=== PATIENT | female | born 1940 | race Caucasian/White ===

== ENCOUNTER 2017-02-13 05:37 | Inpatient (IN) | payer OTHER ==
[2017-02-08 13:06] LABS: BILIRUBIN,URINE NEGATIVE (NEGATIVE); CLARITY/URINE CLEAR (CLEAR); COLOR,URINE YELLOW (YELLOW); GLUCOSE,URINE NEGATIVE (NEGATIVE); KETONES,URINE NEGATIVE (NEGATIVE); LEUKOCYTE ESTERASE ,URINE 1+ (NEGATIVE); NITRITE, URINE NEGATIVE (NEGATIVE); PH,URINE 7.5 (5.0-8.0); PROTEIN URINE NEGATIVE (NEGATIVE); UROBILINOGEN,URINE 0.2 (0.2-1.0)
[2017-02-08 13:08] LABS: BLOOD, URINE TRACE (NEGATIVE)
[2017-02-08 13:10] LABS: BASOPHILS # (AUTO) 0.1 K/uL (0.0-0.2); BASOPHILS % (AUTO) 0.5 % (0.0-2.0); EOSINOPHILS # (AUTO) 0.2 K/uL (0.0-0.4); HEMATOCRIT 41.1 % (36-48); HEMOGLOBIN 13.2 g/dL (12.0-16.0); LYMPHOCYTES # (AUTO) 2.3 K/uL (1.0-5.5); LYMPHOCYTES % (AUTO) 22.1 % (20.5-51.5); MEAN CORPUSCULAR HEMOGLOBIN 29 pg (27-31); MEAN CORPUSCULAR HGB CONC 32 % (32-36); MEAN CORPUSCULAR VOLUME 91 fL (79.0-98.0); MONOCYTES % (AUTO) 9.5 % (1.7-9.3); NEUTROPHILS % (AUTO) 65.9 % (40.0-70.0); PLATELET COUNT (AUTO) 346 K/uL (130-430); RED BLOOD CELL COUNT(AUTO) 4.53 MIL/uL (4.2-6.2); RED CELL DISTRIBUTION WIDTH 12.4 % (9.0-15.0); WHITE BLOOD COUNT (AUTO) 10.6 K/uL (4.8-10.8)
[2017-02-08 13:19] LABS: BACTERIA,URINE FEW /HPF (None Seen)
[2017-02-08 13:20] LABS: MUCUS,URINE 1+ /LPF (None Seen)
[2017-02-08 13:28] LABS: ANION GAP 8 (5-15); CALCIUM 10.1 mg/dL (8.4-11.0); CHLORIDE 101 mmol/L (98-107); CREATININE 0.72 mg/dL (0.55-1.30); GLUCOSE 107 mg/dL (70-99); POTASSIUM 3.7 mmol/L (3.5-5.1); SODIUM SERUM 138 mmol/L (136-145); UREA NITROGEN, BLOOD 14 mg/dL (8-21)
[2017-02-08 13:40] LABS: PROTHROMBIN TIME 10.2 SECS (9.5-12.5)
[~2017-02-13] VITALS: Ht 157.5 cm; Wt 88.9 kg
[~2017-02-13 05:37] MED LIST: ALIS300T PO; AMLO5TAB4 PO; HYDR25TA4 PO; LIP40 PO; OXYC-130 PO; PRAM0.253 PO
[2017-02-13] MEDS ORDERED: ACETAMINOPHEN 500 MG TABLET ONE (06:02)
[2017-02-13] MEDS ORDERED: CEFAZOLIN 2 GM IVPB PREMIX 50 ML IV ONE ×2 (06:02→07:15)
[2017-02-13] MEDS ORDERED: oxyCODONE HCL 10 MG TAB.ER.12H PO ONE ×2 (06:03→07:15)
[2017-02-13] MEDS ORDERED: GABAPENTIN 300 MG CAPSULE ONE (06:03)
[2017-02-13] MEDS ORDERED: CELECOXIB 200 MG CAPSULE ONE (06:03)
[2017-02-13] MEDS ORDERED: TRANEXAMIC ACID 650 MG TABLET ONE (06:04)
[2017-02-13] MEDS ORDERED: LevALBUTEROL HCL 1.25 MG/0.5 ML *CONC.* VIAL.NEB (XOPENEX CONC.) INH ONE ×2 (06:29→06:30)
[2017-02-13] MEDS ORDERED: KETOROLAC TROMETHAMINE 15 MG VIAL IVP ONE (07:00)
[2017-02-13] MEDS ORDERED: fentaNYL CITRATE 250 MCG/5 ML AMP IV ONE (07:00)
[2017-02-13] MEDS ORDERED: ONDANSETRON HCL 4 MG/2 ML VIAL IVP ONE (07:00)
[2017-02-13] MEDS ORDERED: NEOSTIGMINE METHYLSULFATE 1 MG/ML, 10 ML VIAL IVP ONE (07:00)
[2017-02-13] MEDS ORDERED: ALFENTANIL HCL 1000 MCG/2 ML AMP IVP ONE (07:00)
[2017-02-13] MEDS ORDERED: SEVOFLURANE 15 MIN GAS INH ONE (07:00)
[2017-02-13] MEDS ORDERED: MIDAZOLAM HCL 5 MG/ML VIAL (VERSED) IV ONE (07:00)
[2017-02-13] MEDS ORDERED: GLYCOPYRROLATE 0.2 MG/ML VIAL IJ ONE (07:00)
[2017-02-13] MEDS ORDERED: LR 1,000 ML IV.SOLN IV ONE (07:00)
[2017-02-13] MEDS ORDERED: DEXAMETHASONE SOD PHOSPHATE 4 MG/ML VIAL IVP ONE (07:00)
[2017-02-13] MEDS ORDERED: PROPOFOL 200MG/ 20ML VIAL (DIPRIVAN) IV ONE (07:00)
[2017-02-13] MEDS ORDERED: DILTIAZEM HCL 25 MG/5 ML VIAL IV ONE (07:00)
[2017-02-13] MEDS ORDERED: ROCURONIUM BROMIDE 10 MG/ML (ZEMURON) IV ONE (07:00)
[2017-02-13] MEDS ORDERED: fentaNYL CITRATE/PF 100 MCG/2 ML AMP IVP ONE (07:00)
[2017-02-13] MEDS ORDERED: POLYMYXIN 500,000/BACIT.10,000 UNITS in NS IRR 1 L IR ONE (07:09)
[2017-02-13] MEDS ORDERED: ACETAMINOPHEN 500 MG TABLET PO ONE (07:15)
[2017-02-13] MEDS ORDERED: TRANEXAMIC ACID 650 MG TABLET PO ONE (07:15)
[2017-02-13] MEDS ORDERED: CELECOXIB 200 MG CAPSULE PO ONE (07:15)
[2017-02-13] MEDS ORDERED: NACL 0.9% 1,000 ML IV ONE (07:15)
[2017-02-13] MEDS ORDERED: GABAPENTIN 300 MG CAPSULE PO ONE (07:15)
[2017-02-13] MEDS ORDERED: LR 1,000 ML IV SCH (07:54)
[2017-02-13] MEDS ORDERED: ROPIVACAINE 0.2% 100 ML INJ SCH (07:54)
[2017-02-13] MEDS ORDERED: HYDROmorphone 2 MG/ML VIAL IVP PRN ×2 (08:00)
[2017-02-13] MEDS ORDERED: HYDROmorphone 1 MG INJ. 1 MG/ML AMPUL IVP PRN (08:00)
[2017-02-13] MEDS ORDERED: MEPERIDINE HCL/PF 25 MG/ML DISP.SYRIN IVP PRN (08:00)
[2017-02-13] MEDS ORDERED: HYDROcodone/ACETAMIN 10-325 MG TAB PO PRN ×2 (08:00)
[2017-02-13] MEDS ORDERED: ACETAMINOPHEN I.V. 1000 MG 100 ML IV PRN (08:00)
[2017-02-13] MEDS ORDERED: PROMETHAZINE HCL 25 MG/ML AMP IVP PRN (09:15)
[2017-02-13] MEDS ORDERED: DIPHENHYDRAMINE HCL 25 MG CAPSULE PO PRN (09:15)
[2017-02-13] MEDS ORDERED: oxyCODONE HCL 5 MG TABLET PO PRN (09:15)
[2017-02-13] MEDS ORDERED: ONDANSETRON HCL 4 MG/2 ML VIAL IVP PRN (09:15)
[2017-02-13] MEDS ORDERED: SENNOSIDES 8.6 MG TABLET PO PRN (09:15)
[2017-02-13] MEDS ORDERED: ROPIVACAINE 0.2% 550 ML INJ SCH (09:15)
[2017-02-13] MEDS ORDERED: HYDROmorphone 1 MG INJ. 1 MG/ML AMPUL ONE (10:19)
[2017-02-13 11:14] VITALS: BP_SYST 148
[2017-02-13] MEDS: CEFAZOLIN 1 GM IVPB PREMIX 50 ML IV SCH ×2 (15:28→22:49)
[2017-02-13] MEDS: D5LR 1,000 ML IV SCH ×2 (15:29→19:15)
[2017-02-13] MEDS: ACETAMINOPHEN 500 MG TABLET PO SCH ×2 (15:31→21:07)
[2017-02-13 16:39] VITALS: BP_SYST 126
[2017-02-13 17:21] VITALS: BP_SYST 126
[2017-02-13 20:00] VITALS: BP_SYST 142
[2017-02-13] MEDS: GABAPENTIN 300 MG CAPSULE PO SCH (21:08)
[2017-02-13] MEDS: PRAMIPEXOLE DI-HCL 0.25 MG TABLET PO SCH (21:08)
[2017-02-13] MEDS: CELECOXIB 200 MG CAPSULE PO SCH (21:08)
[2017-02-13 23:09] VITALS: BP_SYST 125
[2017-02-13 23:11] VITALS: BP_SYST 125
[2017-02-14 04:02] VITALS: BP_SYST 131
[2017-02-14] MEDS: CEFAZOLIN 1 GM IVPB PREMIX 50 ML IV SCH (05:58)
[2017-02-14] MEDS: D5LR 1,000 ML IV SCH (05:59)
[2017-02-14 06:19] LABS: BASOPHILS % (AUTO) 0.1 % (0.0-2.0); HEMATOCRIT 31.8 % (36-48); HEMOGLOBIN 10.7 g/dL (12.0-16.0); LYMPHOCYTES # (AUTO) 1.2 K/uL (1.0-5.5); LYMPHOCYTES % (AUTO) 8.7 % (20.5-51.5); MEAN CORPUSCULAR HEMOGLOBIN 30 pg (27-31); MEAN CORPUSCULAR HGB CONC 34 % (32-36); MEAN CORPUSCULAR VOLUME 91 fL (79.0-98.0); MONOCYTES # (AUTO) 1.2 K/uL (0.0-1.0); MONOCYTES % (AUTO) 8.7 % (1.7-9.3); NEUTROPHILS % (AUTO) 82.5 % (40.0-70.0); PLATELET COUNT (AUTO) 256 K/uL (130-430); RED BLOOD CELL COUNT(AUTO) 3.51 MIL/uL (4.2-6.2); RED CELL DISTRIBUTION WIDTH 12.4 % (9.0-15.0); WHITE BLOOD COUNT (AUTO) 13.4 K/uL (4.8-10.8)
[2017-02-14 06:25] LABS: ANION GAP 8 (5-15); CALCIUM 9.2 mg/dL (8.4-11.0); CHLORIDE 103 mmol/L (98-107); CREATININE 0.79 mg/dL (0.55-1.30); GLUCOSE 160 mg/dL (70-99); POTASSIUM 3.7 mmol/L (3.5-5.1); SODIUM SERUM 138 mmol/L (136-145); UREA NITROGEN, BLOOD 13 mg/dL (8-21)
[2017-02-14 08:00] VITALS: BP_SYST 123
[2017-02-14] MEDS: CELECOXIB 200 MG CAPSULE PO SCH ×2 (08:55→20:07)
[2017-02-14] MEDS: ATORVASTATIN 20 MG TABLET PO SCH (08:55)
[2017-02-14] MEDS: HYDROCHLOROTHIAZIDE 25 MG TABLET (HCTZ) PO SCH (08:56)
[2017-02-14] MEDS: oxyCODONE HCL 5 MG TABLET PO PRN ×2 (08:57→21:52)
[2017-02-14] MEDS: amLODIPine BESYLATE 5 MG TABLET PO SCH (08:58)
[2017-02-14] MEDS: ALISKIREN HEMIFUMARATE 150 MG TABLET PO SCH (09:00)
[2017-02-14] MEDS: ACETAMINOPHEN 500 MG TABLET PO SCH ×3 (09:01→20:07)
[2017-02-14] MEDS: RIVAROXABAN 10 MG TABLET PO SCH (10:27)
[2017-02-14] MEDS: KETOROLAC TROMETHAMINE 15 MG VIAL IVP PRN (10:28)
[2017-02-14 12:10] VITALS: BP_SYST 134
[2017-02-14 16:00] VITALS: BP_SYST 128
[2017-02-14 20:07] VITALS: BP_SYST 131
[2017-02-14] MEDS: GABAPENTIN 300 MG CAPSULE PO SCH (20:07)
[2017-02-14] MEDS: PRAMIPEXOLE DI-HCL 0.25 MG TABLET PO SCH (20:07)
[2017-02-14] MEDS: MORPHINE 4 MG/ML INJ. SYRINGE IVP PRN (22:32)
[2017-02-14 23:50] VITALS: BP_SYST 124
[2017-02-15] MEDS: MORPHINE 4 MG/ML INJ. SYRINGE IVP PRN ×3 (01:32→13:54)
[2017-02-15 03:31] VITALS: BP_SYST 115
[2017-02-15 06:39] LABS: ANION GAP 4 (5-15); CHLORIDE 103 mmol/L (98-107); CREATININE 0.64 mg/dL (0.55-1.30); GLUCOSE 105 mg/dL (70-99); POTASSIUM 3.5 mmol/L (3.5-5.1); SODIUM SERUM 137 mmol/L (136-145); UREA NITROGEN, BLOOD 15 mg/dL (8-21)
[2017-02-15 06:40] LABS: BASOPHILS % (AUTO) 0.5 % (0.0-2.0); EOSINOPHILS # (AUTO) 0.1 K/uL (0.0-0.4); EOSINOPHILS % (AUTO) 1.4 % (0.0-4.0); HEMATOCRIT 32.6 % (36-48); HEMOGLOBIN 10.8 g/dL (12.0-16.0); LYMPHOCYTES % (AUTO) 21.7 % (20.5-51.5); MEAN CORPUSCULAR HEMOGLOBIN 30 pg (27-31); MEAN CORPUSCULAR HGB CONC 33 % (32-36); MEAN CORPUSCULAR VOLUME 90 fL (79.0-98.0); MONOCYTES # (AUTO) 1.3 K/uL (0.0-1.0); MONOCYTES % (AUTO) 13.6 % (1.7-9.3); NEUTROPHILS % (AUTO) 62.8 % (40.0-70.0); PLATELET COUNT (AUTO) 235 K/uL (130-430); RED BLOOD CELL COUNT(AUTO) 3.61 MIL/uL (4.2-6.2); RED CELL DISTRIBUTION WIDTH 12.5 % (9.0-15.0); WHITE BLOOD COUNT (AUTO) 9.4 K/uL (4.8-10.8)
[2017-02-15] MEDS: KETOROLAC TROMETHAMINE 15 MG VIAL IVP PRN (07:48)
[2017-02-15 08:00] VITALS: BP_SYST 129
[2017-02-15 08:11] VITALS: BP_SYST 129
[2017-02-15] MEDS: D5LR 1,000 ML IV SCH ×3 (08:25→11:15)
[2017-02-15] MEDS: CELECOXIB 200 MG CAPSULE PO SCH (08:28)
[2017-02-15] MEDS: ACETAMINOPHEN 500 MG TABLET PO SCH (08:29)
[2017-02-15] MEDS: ATORVASTATIN 20 MG TABLET PO SCH (08:29)
[2017-02-15] MEDS: HYDROCHLOROTHIAZIDE 25 MG TABLET (HCTZ) PO SCH (08:30)
[2017-02-15] MEDS: amLODIPine BESYLATE 5 MG TABLET PO SCH (08:31)
[2017-02-15] MEDS: ALISKIREN HEMIFUMARATE 150 MG TABLET PO SCH (08:31)
[2017-02-15] MEDS: RIVAROXABAN 10 MG TABLET PO SCH (10:25)
[2017-02-15] MEDS: oxyCODONE HCL 5 MG TABLET PO PRN (10:26)
[2017-02-15 12:04] VITALS: BP_SYST 135
[2017-02-15 12:17] VITALS: BP_SYST 125
[2017-02-15 16:00] VITALS: BP_SYST 130
== END 2017-02-15 15:05 | disposition home health service (06) | DRG 470 ==
LOC: SMU 05:37 → STU 10:43
PROVIDERS: ADMIT Orthopaedic Surgery; ATTEND Orthopaedic Surgery
PROC: 3E0T3BZ Introduction of Anesthetic Agent into Peripheral Nerves and Plexi, Percutaneous Approach (ICD-10-PCS; 2017-02-13)
PROC: 0SRC0J9 Replacement of Right Knee Joint with Synthetic Substitute, Cemented, Open Approach (ICD-10-PCS; principal; 2017-02-13 07:30)
DX: M17.11 Unilateral primary osteoarthritis, right knee (principal); E11.9 Type 2 diabetes mellitus without complications; G25.81 Restless legs syndrome; I10 Essential (primary) hypertension; Z96.652 Presence of left artificial knee joint; E78.5 Hyperlipidemia, unspecified; J45.909 Unspecified asthma, uncomplicated; E66.9 Obesity, unspecified; Z68.35 Body mass index [BMI] 35.0-35.9, adult
CPT/HCPCS: 36415; 71020-TC; 80048; 81000-TC; 85025; 85610-TC; 85730-TC; 87081; 88305; 88311; 94010; 94640; 94760; 97039; 97110-GP; 97116-GP; 97530-GP; C1713; C1776; J0690; J1100; J1170; J1885; J2250; J2270; J2405; J2704; J2710; J2795; J3010; J3490; J7120

== ENCOUNTER 2017-02-17 15:40 | Emergency (ER) | payer OTHER ==
[~2017-02-17] VITALS: Ht 157.5 cm; Wt 88.9 kg
[2017-02-17] MEDS ORDERED: NACL 0.9% 1,000 ML IV ONE (15:53)
[2017-02-17] MEDS ORDERED: ASPIRIN 81 MG TAB.CHEW PO ONE (16:00)
[2017-02-17 16:31] VITALS: BP_SYST 153
--- NOTE | 2017-02-17 16:38 | NUR ---
Pt placed to ER waiting room in w/c, stable condition.
--- NOTE | 2017-02-17 16:39 | NUR ---
Pt placed to ER bed 05, to gown, report given to MYA Russell.
--- NOTE | 2017-02-17 16:40 | NUR ---
received Pt awake, alert, orientated x4. Pt breathing even and unlabored. Pt c/o right knee pain 9/10 aching pain s/p right TKO on Monday02/13/2017 and right brusing medial right upper thigh. Pt ambulatory with weak steady gait. Bilateral pedal pulse noted, cap refills less than 3 secs, skin warm to the touch. No edema noted. Dressing removed. Incision is well approximated, no inflammation, swelling, redness or drainage noted. Currently waiting new orders.
--- NOTE | 2017-02-17 16:45 | NUR ---
Dr. Stevenson at the bedside evaluating Pt. Currently awaiting new orders.
[2017-02-17] MEDS ORDERED: CLINDAMYCIN HCL 150 MG CAPSULE PO ONE (17:15)
--- NOTE | 2017-02-17 17:41 | NUR ---
Pt c/o right knee pain asking if she can take an Oxy that her physician prescribed for her. Dr. Stevenson said ok. Pt provided water for pain medication. Family at bedside
[2017-02-17 19:09] VITALS: BP_SYST 142
--- NOTE | 2017-02-17 19:10 | NUR ---
Patient given written and verbal discharge instructions and verbalizes understanding. ER MD discussed with patient the results and treatment provided. Patient in stable condition. ID arm band removed. IV catheter removed intact and dressing applied, no active bleeding. Rx of Clindamycin and Keflex given. Patient educated on pain management and to follow up with PMD. Pain Scale 0/10. Opportunity for questions provided and answered.
== END 2017-02-17 19:10 | disposition home or self-care (01) ==
LOC: SED 15:40
DX: G89.18 Other acute postprocedural pain (principal)
CPT/HCPCS: 99283